=== PATIENT | female | born 1985 | race Caucasian/White ===

== ENCOUNTER → 2020-11-29 | Outpatient (CLI) | payer OTHER ==
[~2020-11-29] MED LIST: COLACE 100MG C100 MG PO; FLEXERIL 10 MG10 MG PO; KEFLEX CAP 500500 MG PO; KEFLEX500 MG PO; LODINE CAP 300300 MG PO; VIBRAMYCIN100 MG PO; ZOFRAN ODT 4 MG4 MG PO
[2020-11-29 14:00] LABS: HEMOGLOBIN 12.7 gm/dl (12.3-15.3); RED BLOOD COUNT 4.11 M/UL (4.00-5.10); WHITE BLOOD COUNT 8.3 K/UL (4.5-11.0)
[2020-11-29 14:25] LABS: BUN/CREATININE RATIO 18 (0-10)
[2020-11-30 08:15] LABS: VITAMIN D, 25-HYDROXY 27.4 ng/mL (30.0-100.0)
[2020-11-30 13:09] LABS: RHEUMATOID ARTHRITIS FACTOR <10.0 IU/mL (0.0-13.9)
[2020-12-02 00:12] LABS: CCP ANTIBODIES IGG/IGA 4 units (0-19)
== END ==
LOC: LAB 13:12
PROVIDERS: Nurse Practitioner Family
DX: D89.9 Disorder involving the immune mechanism, unspecified (principal); M25.50 Pain in unspecified joint; R76.8 Other specified abnormal immunological findings in serum; R42 Dizziness and giddiness
CPT/HCPCS: 36415; 80053; 81001; 82550; 82570; 82728; 83520; 83540; 83550; 84156; 84439; 84443; 85025; 85652; 86140; 86200; 86431